=== PATIENT | female | born 1975 | race African-American/Black ===

== ENCOUNTER 2022-02-25 14:58 | Emergency (ER) | payer OTHER ==
[2022-02-25] MEDS ORDERED: LIDOCAINE 5% TOPICAL PATCH TP ONE (15:20)
[2022-02-25] MEDS ORDERED: ACETAMINOPHEN 325 MG TABLET (FP) PO ONE (15:20)
[2022-02-25] MEDS ORDERED: LIDOCAINE 5% TOPICAL PATCH ONE (15:26)
[2022-02-25] MEDS ORDERED: ACETAMINOPHEN 325 MG TABLET (FP) ONE (15:26)
[2022-02-25 15:29] VITALS: BP 117/83; PULSE 102; RESP 18; TEMP 98.5; BMI 38.4
[2022-02-25] MEDS ORDERED: LIDOCAINE PATCH REMOVAL MC SCH (22:00)
== END 2022-02-25 15:35 | disposition home or self-care (01) ==
LOC: FER 14:58
DX: M54.50 Low back pain, unspecified (principal); W01.0XXA Fall on same level from slipping, tripping and stumbling without subsequent striking against object, initial encounter
CPT/HCPCS: 99283-25

== ENCOUNTER 2023-05-19 16:36 | Emergency (ER) | payer OTHER ==
[2023-05-19 16:58] VITALS: BP 144/97; PULSE 120; RESP 19; TEMP 98.6; BMI 38.0
[2023-05-19] MEDS ORDERED: LIDOCAINE 5% TOPICAL PATCH ONE (17:47)
[2023-05-19] MEDS: LIDOCAINE 5% TOPICAL PATCH TP ONE (17:50)
[2023-05-19] MEDS ORDERED: LIDOCAINE PATCH REMOVAL MC SCH (22:00)
== END 2023-05-19 18:28 | disposition home or self-care (01) ==
LOC: FER 16:36
DX: M54.2 Cervicalgia (principal); R20.0 Anesthesia of skin; R20.2 Paresthesia of skin; S16.1XXA Strain of muscle, fascia and tendon at neck level, initial encounter; X58.XXXA Exposure to other specified factors, initial encounter
CPT/HCPCS: 72125-TC; 99284-25